=== PATIENT | female | born 1975 | race Caucasian/White ===

== ENCOUNTER 2024-05-22 12:05 | Emergency (ER) | payer OTHER, SELFPAY ==
[2024-05-22] VITALS (18 sets, daily range): BP systolic 110–145; BP diastolic 76–110; PULSE 107–141; TEMP 36.6–36.9; O2SAT 92–97; BMI 46.6
[2024-05-22 12:51] LABS: pH VBG 7.368 (7.330-7.430)
[2024-05-22 12:54] LABS: Hematocrit 44.5 % (36.0-48.0); Hemoglobin 15.1 g/dL (12.0-16.0); Mean Corpuscular HGB Conc 33.9 g/dL (29.9-35.2); Mean Corpuscular Hemoglobin 28.7 pg (26.7-34.0); Mean Corpuscular Volume 84.4 fL (81.0-99.0); Mean Platelet Volume 9.2 fL (9.5-13.5); Platelet Count 287 10^3/uL (150-450); Red Blood Count 5.27 10^6/uL (4.20-5.40); Red Cell Distribution Width 13.3 % (11.0-15.0); White Blood Count 6.8 10^3/uL (4.0-11.0)
[2024-05-22] MEDS: PROCHLORPERAZINE 10 MG/2 ML VIAL 5 MG IV (12:55)
[2024-05-22] MEDS: 0.9 % SODIUM CHLORIDE 1,000 ML 999 ML IV (12:55)
[2024-05-22] MEDS: KETOROLAC TROMETHAMINE 30 MG/ML VIAL 15 MG IVP (12:55)
[2024-05-22] MEDS: ONDANSETRON PF 4 MG/2 ML VIAL IV (12:56)
[2024-05-22 13:15] LABS: Band Neutrophils Absolute 0.1 10^3/uL (0.0-0.3); Lymphocytes Absolute Manual 0.74 10^3/uL (1.20-3.80); Monocytes Absolute Manual 0.34 10^3/uL (0.30-0.80); Segmented Neut Absolute Manual 5.37 10^3/uL (1.4-6.5)
[2024-05-22 13:31] LABS: Alanine Aminotransferase 53 U/L (14-59); Albumin Globulin Ratio 0.8; Albumin Level 3.8 g/dL (3.4-5.0); Alkaline Phosphatase 69 U/L (46-116); Anion Gap 14.4; Aspartate Amino Transferase 33 U/L (15-37); BUN Creatinine Ratio 11.7; Bilirubin Total 0.4 mg/dL (0.2-1.0); Calcium 9.6 mg/dL (8.5-10.1); Carbon Dioxide 24.9 mmol/L (21.0-32.0); Chloride 101 mmol/L (98-107); Estimated GFR (African America >60 (>=60 mL/min/1.73m^2); Estimated GFR (Non-African Ame 52 (>=60 mL/min/1.73m^2); Globulin 4.6 g/dL; Glucose 176 mg/dL (74-106); Magnesium 1.8 mg/dL (1.8-2.4); Potassium 4.3 mmol/L (3.5-5.1); Sodium 136 mmol/L (136-145); Total Protein 8.4 g/dL (6.4-8.2); Troponin I High Sensitivity 10.1 pg/mL (4.0-51.3)
--- NOTE | 2024-05-22 13:37 | CT_ITS ---
The [address] [address] Patient Name: MICKEY LIANG MRN: [id number] date: 1975 Sex: F Assigned Patient Location: ER Current Patient Location: ER Accession/Order Number: [id number] Exam Date: 05/22/2024 14:17 Report Date: 05/22/2024 14:44 At the request of: MARICEL PRASAD Procedure: CT abdomen pelvis w con EXAMINATION: CT abdomen pelvis w con HISTORY: diarrhea COMPARISON: No relevant comparison available. TECHNIQUE: CT images were created with IV contrast. Axial, Coronal, and Sagittal images. Dose reduction techniques were achieved by using automated exposure control and/or adjustment of mA and/or kV according to patient size and/or use of iterative reconstruction technique. FINDINGS: LUNG BASES: No visible pulmonary or pleural disease. LIVER: Diffuse hypoattenuation consistent with hepatic steatosis BILIARY: No visible dilatation or calcification. PANCREAS: No lesion, fluid collection, ductal dilatation, or atrophy. SPLEEN: No enlargement or focal lesion. ADRENALS: No mass or enlargement. KIDNEYS: Severe atrophy or polyp the right kidney. Normal left. No obstructive uropathy BOWEL/MESENTERY: No visible mass, obstruction, or bowel wall thickening. AORTA/VASCULAR: No aneurysm or dissection. RETROPERITONEUM: No mass or adenopathy. LYMPH NODES: No adenopathy. URINARY BLADDER: No visible focal wall thickening, lesion, or calculus. PELVIC ORGANS: Hysterectomy ABDOMINAL WALL: No mass or hernia. BONES: No bony lesion or fracture. OTHER: Negative. CT/CT abdomen pelvis w con IMPRESSION: Hepatic steatosis Nonobstructive bowel gas pattern Electronically authenticated by: ADOLPH AKBAR Date: 05/22/2024 14:44
[2024-05-22 13:39] LABS: Lactate/Lactic Acid 2.7 mmol/L (0.4-2.0)
[2024-05-22 14:07] LABS: C. Difficile PCR NEGATIVE
[2024-05-22] MEDS: 0.9 % SODIUM CHLORIDE 1,000 ML 1000 ML IV (14:42)
--- NOTE | 2024-05-22 14:50 | ED.GENADUL1 ---
Documented by User: Kaylene Hernandez 05/22/24 16:32 HPI HPI - General Adult General Chief complaint: Nausea/Vomiting/Diarrhea Stated complaint: DIARRHEA Time Seen by Provider: 05/22/24 12:27 Source: patient Mode of arrival: walk-in Limitations: no limitations History of Present Illness HPI narrative: 49-year-old female presents here chief complaint of diarrhea. 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 She states her symptoms began approximately 18 hours ago. Complains of mild nausea and generalized cramping. She is afebrile nontoxic-appearing. Upon arrival she is tachycardic. She states she feels dehydrated. She denies a known history of Crohn's IBS or other abdominal issues. Her abdomen is soft. Related Data Previous Rx's ?Medication ?Instructions ?Recorded dicyclomine 20 mg tablet 20 mg PO QID PRN abdominal pain 05/22/24 #20 tabs Allergies Allergy/AdvReac Type Severity Reaction Status Date / Time No Known Drug Allergies Allergy Verified 05/22/24 12:18 Opioid HPI Opioid Management Most Recent Opioid Data: Last AUG Pain Assessment 05/22/24 12:55 Review of Systems ROS Narrative All Systems are negative except as noted/marked.All systems reviewed and otherwise negative PFSH PFSH Social History Little interest or pleasure in doing things: not at all Feeling down, depressed, or hopeless: not at all Exam Narrative Exam Narrative: Nurses note and vital signs reviewed and patient is not hypoxic. General: The patient appears well and in no apparent distress. Patient is resting comfortably on cart. Skin: Warm, dry, no pallor noted. There is no rash noted. Head: Normocephalic, atraumatic Eye: Normal conjunctiva, no drainage, EOMI. PERRL Ears, Nose, Mouth, and Throat: oral mucosa is moist. Nares patent. Mouth without vesicles. Ear canals patent. Tm's without Erythema Cardiovascular: Regular Rate and Rhythm Respiratory: Patient is in no distress, no accessory muscle use, lungs are clear to auscultation, no wheezing, rales or rhonchi Back: non-tender, no CVA tenderness bilaterally to percussion. GI: Normal bowel sounds, no tenderness to palpation, no masses appreciated. No rebound, guarding, or rigidity noted. Musculoskeletal: The patient has no evidence of calf tenderness, no pitting edema, symmetrical pulses noted bilaterally Neurological: A&O x4, normal speech Psychiatric: Cooperative Constitutional Vital Signs, click to edit/add: Last Vital Signs Temp 98.5 F 05/22/24 14:44 Pulse 107 H 05/22/24 15:12 Resp 18 05/22/24 15:12 BP 110/76 05/22/24 14:44 Pulse Ox 93 L 05/22/24 15:12 O2 Del Method Room Air 05/22/24 14:44 Course Vital Signs Vital signs: Vital Signs Temperature 97.8 F 05/22/24 12:15 Pulse Rate 141 H 05/22/24 12:15 Respiratory Rate 24 H 05/22/24 12:15 Blood Pressure 145/110 H 05/22/24 12:15 Pulse Oximetry 96 05/22/24 12:15 Temperature 98.5 F 05/22/24 14:44 Pulse Rate 107 H 05/22/24 15:12 Respiratory Rate 18 05/22/24 15:12 Blood Pressure 110/76 05/22/24 14:44 Pulse Oximetry 93 L 05/22/24 15:12 Oxygen Delivery Method Room Air 05/22/24 14:44 Medical Decision Making MDM Narrative Medical decision making narrative: 49-year-old female presents here chief complaint of diarrhea. 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 She states her symptoms began approximately 18 hours ago. Complains of mild nausea and generalized cramping. She is afebrile nontoxic-appearing. Upon arrival she is tachycardic. She states she feels dehydrated. She denies a known history of Crohn's IBS or other abdominal issues. Her abdomen is soft. Presenting here chief complaint of diarrhea. IV was established and patient arrived to the emergency room IV fluids were given. CBC, CMP reviewed. Upon arrival to the emergency room patient was tachycardic. After fluids patient's heart rate did improved from the 130s to 110. She does feel better. She did have an elevated lactic acid of 2.7 and improved to 1.3after fluids. Obtained initial C. difficile is negative. Blood work were reviewed mildly elevated creatinine was noted. Patient did receive fluids. She states she feels much better. She was given a work note for work tomorrow. Discharged home prescription of Bentyl. Patient verbalized understanding and agrees with plan of care. Differential Diagnosis Differential Diagnosis: diarrhea, abdominal pain Medical Records Medical records reviewed: Yes I reviewed the patient's medical records Lab Data Lab results reviewed: Yes I reviewed the patient's lab results Labs: Lab Results 05/22/24 05/22/24 05/22/24 Range/Units 12:35 13:00 15:38 WBC 6.8 (4.0-11.0) 10^3/uL RBC 5.27 (4.20-5.40) 10^6/uL Hgb 15.1 (12.0-16.0) g/dL Hct 44.5 (36.0-48.0) % MCV 84.4 (81.0-99.0) fL MCH 28.7 (26.7-34.0) pg MCHC 33.9 (29.9-35.2) g/dL RDW 13.3 (11.0-15.0) % Plt Count 287 (150-450) 10^3/uL MPV 9.2 L (9.5-13.5) fL Seg Neuts % (Manual) 79.0 H (43.0-75.0) Band Neutrophils % 2.0 (0-5) % Lymphocytes % (Manual) 11.0 L (20.5-60.0) % Monocytes % (Manual) 5.0 (1.7-12.0) % Eosinophils % (Manual) 0.0 L (0.9-7.0) % Basophils % (Manual) 3.0 H (0.2-2.0) % Neutrophils # (Manual) 5.37 (1.4-6.5) 10^3/uL Band Neutrophils # 0.1 (0.0-0.3) 10^3/uL Lymphocytes # (Manual) 0.74 L (1.20-3.80) 10^3/uL Monocytes # (Manual) 0.34 (0.30-0.80) 10^3/uL Eosinophils # (Manual) 0.00 (0.00-0.70) 10^3/uL Basophils # (Manual) 0.20 H (0.00-0.10) 10^3/uL VBG pH 7.368 (7.330-7.430) VBG pCO2 45.0 (40.0-52.0) mmHg Sodium 136 (136-145) mmol/L Potassium 4.3 (3.5-5.1) mmol/L Chloride 101 (98-107) mmol/L Carbon Dioxide 24.9 (21.0-32.0) mmol/L Anion Gap 14.4 BUN 13.0 (7.0-18.0) mg/dL Creatinine 1.11 H (0.55-1.02) mg/dL Est GFR ( Amer) >60 (>=60 mL/min/1.73m^2) Est GFR (Non-Af Amer) 52 L (>=60 mL/min/1.73m^2) BUN/Creatinine Ratio 11.7 Glucose 176 H (74-106) mg/dL Lactate 2.7 H* 1.3 (0.4-2.0) mmol/L Calcium 9.6 (8.5-10.1) mg/dL Magnesium 1.8 (1.8-2.4) mg/dL Total Bilirubin 0.4 (0.2-1.0) mg/dL AST 33 (15-37) U/L ALT 53 (14-59) U/L Alkaline Phosphatase 69 (46-116) U/L Troponin I High Sens 10.1 (4.0-51.3) pg/mL Total Protein 8.4 H (6.4-8.2) g/dL Albumin 3.8 (3.4-5.0) g/dL Globulin 4.6 g/dL Albumin/Globulin Ratio 0.8 Lipase 34.0 (16.0-77.0) U/L C. difficile Toxin PCR Negative Imaging Data CT scan - abdomen: Radiologist's impression: ITS Impressions Abdomen/Pelvis CT 05/22/24 13:37 IMPRESSION: Hepatic steatosis Nonobstructive bowel gas pattern Electronically authenticated by: ADLOPH AKBAR Date: 05/22/2024 14:44 ECG Data Interpretation: 1240 2 shows a sinus tachycardia 132 beats a minute, OH interval 130 ms, QRS duration 80 ms no STEMI Discharge Plan Discharge Chief Complaint: Nausea/Vomiting/Diarrhea Clinical Impression: Diarrhea Patient Disposition: Home, Self-Care Time of Disposition Decision: 16:24 Condition: Good Prescriptions / Home Meds: New dicyclomine 20 mg tablet 20 mg PO QID PRN (Reason: abdominal pain) Qty: 20 0RF Print Language: Namibian Instructions: Acute Diarrhea (ED) Referrals: SACHIN TAPIA [Primary Care Provider] - 1 week Discharge Date/Time: 05/22/24 16:33 Documented by User: Domingo Ronquillo MD 05/22/24 20:01 HPI HPI - General Adult General Chief complaint: Nausea/Vomiting/Diarrhea Stated complaint: DIARRHEA Time Seen by Provider: 05/22/24 12:27 Related Data Previous Rx's ?Medication ?Instructions ?Recorded dicyclomine 20 mg tablet 20 mg PO QID PRN abdominal pain 05/22/24 #20 tabs Allergies Allergy/AdvReac Type Severity Reaction Status Date / Time No Known Drug Allergies Allergy Verified 05/22/24 12:18 Opioid HPI Opioid Management Most Recent Opioid Data: Last MAR Pain Assessment 05/22/24 12:55 PFSH PFSH Social History Little interest or pleasure in doing things: not at all Feeling down, depressed, or hopeless: not at all Exam Constitutional Vital Signs, click to edit/add: Last Vital Signs Temp 98.5 F 05/22/24 14:44 Pulse 107 H 05/22/24 15:12 Resp 18 05/22/24 15:12 BP 110/76 05/22/24 14:44 Pulse Ox 93 L 05/22/24 15:12 O2 Del Method Room Air 05/22/24 14:44 Course Vital Signs Vital signs: Vital Signs Temperature 97.8 F 05/22/24 12:15 Pulse Rate 141 H 05/22/24 12:15 Respiratory Rate 24 H 05/22/24 12:15 Blood Pressure 145/110 H 05/22/24 12:15 Pulse Oximetry 96 05/22/24 12:15 Temperature 98.5 F 05/22/24 14:44 Pulse Rate 107 H 05/22/24 15:12 Respiratory Rate 18 05/22/24 15:12 Blood Pressure 110/76 05/22/24 14:44 Pulse Oximetry 93 L 05/22/24 15:12 Oxygen Delivery Method Room Air 05/22/24 14:44 Medical Decision Making MDM Narrative Medical decision making narrative: 49-year-old female presents here chief complaint of diarrhea. 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 She states her symptoms began approximately 18 hours ago. Complains of mild nausea and generalized cramping. She is afebrile nontoxic-appearing. Upon arrival she is tachycardic. She states she feels dehydrated. She denies a known history of Crohn's IBS or other abdominal issues. Her abdomen is soft. Presenting here chief complaint of diarrhea. IV was established and patient arrived to the emergency room IV fluids were given. CBC, CMP reviewed. Upon arrival to the emergency room patient was tachycardic. After fluids patient's heart rate did improved from the 130s to 110. She does feel better. She did have an elevated lactic acid of 2.7 and improved to 1.3after fluids. Obtained initial C. difficile is negative. Blood work were reviewed mildly elevated creatinine was noted. Patient did receive fluids. She states she feels much better. She was given a work note for work tomorrow. Discharged home prescription of Bentyl. Patient verbalized understanding and agrees with plan of care. I, Dr Ronquillo, have reviewed the above progress note and course of action in the ER; agree with the above. I have gone over history and physical, and discussed disposition and treatment plan with the patient. Lab Data Labs: Lab Results 05/22/24 05/22/24 05/22/24 Range/Units 12:35 13:00 15:38 WBC 6.8 (4.0-11.0) 10^3/uL RBC 5.27 (4.20-5.40) 10^6/uL Hgb 15.1 (12.0-16.0) g/dL Hct 44.5 (36.0-48.0) % MCV 84.4 (81.0-99.0) fL MCH 28.7 (26.7-34.0) pg MCHC 33.9 (29.9-35.2) g/dL RDW 13.3 (11.0-15.0) % Plt Count 287 (150-450) 10^3/uL MPV 9.2 L (9.5-13.5) fL Seg Neuts % (Manual) 79.0 H (43.0-75.0) Band Neutrophils % 2.0 (0-5) % Lymphocytes % (Manual) 11.0 L (20.5-60.0) % Monocytes % (Manual) 5.0 (1.7-12.0) % Eosinophils % (Manual) 0.0 L (0.9-7.0) % Basophils % (Manual) 3.0 H (0.2-2.0) % Neutrophils # (Manual) 5.37 (1.4-6.5) 10^3/uL Band Neutrophils # 0.1 (0.0-0.3) 10^3/uL Lymphocytes # (Manual) 0.74 L (1.20-3.80) 10^3/uL Monocytes # (Manual) 0.34 (0.30-0.80) 10^3/uL Eosinophils # (Manual) 0.00 (0.00-0.70) 10^3/uL Basophils # (Manual) 0.20 H (0.00-0.10) 10^3/uL VBG pH 7.368 (7.330-7.430) VBG pCO2 45.0 (40.0-52.0) mmHg Sodium 136 (136-145) mmol/L Potassium 4.3 (3.5-5.1) mmol/L Chloride 101 (98-107) mmol/L Carbon Dioxide 24.9 (21.0-32.0) mmol/L Anion Gap 14.4 BUN 13.0 (7.0-18.0) mg/dL Creatinine 1.11 H (0.55-1.02) mg/dL Est GFR ( Amer) >60 (>=60 mL/min/1.73m^2) Est GFR (Non-Af Amer) 52 L (>=60 mL/min/1.73m^2) BUN/Creatinine Ratio 11.7 Glucose 176 H (74-106) mg/dL Lactate 2.7 H* 1.3 (0.4-2.0) mmol/L Calcium 9.6 (8.5-10.1) mg/dL Magnesium 1.8 (1.8-2.4) mg/dL Total Bilirubin 0.4 (0.2-1.0) mg/dL AST 33 (15-37) U/L ALT 53 (14-59) U/L Alkaline Phosphatase 69 (46-116) U/L Troponin I High Sens 10.1 (4.0-51.3) pg/mL Total Protein 8.4 H (6.4-8.2) g/dL Albumin 3.8 (3.4-5.0) g/dL Globulin 4.6 g/dL Albumin/Globulin Ratio 0.8 Lipase 34.0 (16.0-77.0) U/L C. difficile Toxin PCR Negative Imaging Data CT scan - abdomen: Radiologist's impression: ITS Impressions Abdomen/Pelvis CT 05/22/24 13:37 IMPRESSION: Hepatic steatosis Nonobstructive bowel gas pattern Electronically authenticated by: ADOLPH AKBAR Date: 05/22/2024 14:44 Discharge Plan Discharge Chief Complaint: Nausea/Vomiting/Diarrhea Clinical Impression: Diarrhea Patient Disposition: Home, Self-Care Time of Disposition Decision: 16:24 Condition: Good Prescriptions / Home Meds: New dicyclomine 20 mg tablet 20 mg PO QID PRN (Reason: abdominal pain) Qty: 20 0RF Print Language: [place]ian Instructions: Acute Diarrhea (ED) Referrals: SACHIN TAPIA [Primary Care Provider] - 1 week Discharge Date/Time: 05/22/24 16:33
[2024-05-22 16:06] LABS: Lactate/Lactic Acid 1.3 mmol/L (0.4-2.0)
--- NOTE | 2024-05-22 19:22 | ECG_ITS ---
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
== END 2024-05-22 16:33 | disposition home or self-care (01) ==
PROVIDERS: Physician Assistant; Emergency Provider Emergency Medicine; PCP Family Medicine
DX: R19.7 Diarrhea, unspecified (principal); Z90.710 Acquired absence of both cervix and uterus; K76.0 Fatty (change of) liver, not elsewhere classified
CPT/HCPCS: 36415; 74177; 80053; 82800; 83605; 83690; 83735; 84484; 85007; 85027; 87045; 87046; 87427; 87493; 93005; 96361; 96374; 96375; 99285; J0780; J1885; J2405; Q9967